=== PATIENT | female | born 1980 | race Caucasian/White ===

== ENCOUNTER 2016-06-18 20:11 | Emergency (ER) | payer OTHER | END 2016-06-18 21:42 | disposition left against medical advice (07) | LOC: ER 20:11 | DX: M54.5 Low back pain (principal); M25.551 Pain in right hip; M25.552 Pain in left hip; F17.210 Nicotine dependence, cigarettes, uncomplicated; Z88.0 Allergy status to penicillin; Z88.2 Allergy status to sulfonamides; Z88.5 Allergy status to narcotic agent | CPT/HCPCS: 80307 ==

== ENCOUNTER 2016-08-12 20:41 | Emergency (ER) | payer OTHER | END 2016-08-13 00:54 | disposition home or self-care (01) | LOC: ER 20:41 | DX: R07.89 Other chest pain (principal); F15.10 Other stimulant abuse, uncomplicated; F17.210 Nicotine dependence, cigarettes, uncomplicated; Z88.2 Allergy status to sulfonamides; Z88.0 Allergy status to penicillin; Z88.5 Allergy status to narcotic agent | CPT/HCPCS: 36415; 80307; Q9967 ==